=== PATIENT | male | born 1955 | race Caucasian/White ===

== ENCOUNTER 2022-12-29 10:43 | Emergency (ER) | payer MEDICARE, BC ==
[2022-12-29] MEDS ORDERED: Lidocaine 5% Oint 35.44 GM Tube TOP ONE (11:52)
[2022-12-29] MEDS ORDERED: Bacitracin Oint 1 GM U/D Packet TOP ONE (11:52)
== END 2022-12-29 12:17 | disposition home or self-care (01) ==
LOC: DL.ED 10:43
DX: T23.222A Burn of second degree of single left finger (nail) except thumb, initial encounter (principal); W00.0XXA Fall on same level due to ice and snow, initial encounter
CPT/HCPCS: 99282; 99283; A9270-GY